=== PATIENT | female | born 1935 | race Caucasian/White ===

== ENCOUNTER 2023-07-29 23:38 | Emergency (ER) | payer MEDICARE, SELFPAY ==
[2023-07-29 23:39] VITALS: BP 182/79; BMI 21.2
[2023-07-30] VITALS: BP 190/82
--- NOTE | 2023-07-30 00:19 | ED.GENMED ---
History of Present Illness
General
Chief Complaint: Musculo-Skeletal Complaint
Source: patient
Exam Limitations: none
Time Seen by Provider: 07/29/23 23:41
Travel History
Have you had any contact with someone who has COVID-19?: No
Do you have any symptoms of coronavirus? Fever > 100 degrees, chills, cough, shortness of breath, sore throat, loss of taste or smell, muscle aches, or headache?: No
History of Present Illness
History of Present Illness:
This is a 88 year old female that comes in by ambulance with c/o left wrist pain. Patient state that she was coming out of the bathroom and she slipped. State that she fell and she has pain in the left wrist. States that she also has a headache and
felt nauseated at first. States that she has had a cough for a week. (patient is on Zithromax at this time and steroids). Denies any fever, chills, chest pain, abd pain, vomiting, diarrhea, dizziness, urinary burning.
Past History
Past History
ED Past Medical History: Asthma and COPD
ED Past Surgical History: Appendectomy, Gynecological (Oophorectomy) and Orthopedic (Left hip replacement)
Social History
Tobacco: Former smoker
Alcohol: Occasional
Personal:
Living: senior living ()
Review of Systems
Review of Systems
All Other Systems: ROS reviewed and negative except as documented in HPI and ROS
Constitutional: Reports no symptoms; Denies fever or chills
EENT: Reports no symptoms
Respiratory: Reports cough and trouble breathing (occasional, not at this time. )
Cardiac: Reports no symptoms; Denies chest pain
ABD/GI: Reports nausea; Denies abdominal pain, vomiting or diarrhea
: Reports no symptoms; Denies dysuria, frequency or urgency
Musculoskeletal: Reports joint pain (Left wrist pain)
Skin: Reports no symptoms
Neurological: Reports headache; Denies dizzy
Psychiatric: Reports no symptoms
Phy Exam
General Physical Exam
General Presentation: no apparent distress
General age: appears stated age
General Skin: warm and dry
General Habitus: elderly
General Mental: alert
General Hydration: appears well hydrated
ENT Exam
ENT Exam: TM's normal, pharynx normal and neck supple
Eye Exam
Eye Exam: EOMI
Cardiovascular Exam
Cardiovascular Exam: regular rate/rhythm, no edema and normal peripheral pulses
Pulmonary Exam
Pulmonary Exam: lungs clear, no respiratory distress, no rales, chest non tender, no crackles, no rhonchi, no wheezing and no cough
Gastrointestinal Exam
Gastrointestinal Exam: normal bowel sounds, non tender, soft, no organomegaly, no pulsatile mass and non distended
Musculoskeletal Exam
Musculoskeletal Exam: other (Negative for any cervical neck tenderness. Able to flex left wrist and move fingers. hematoma noted on the lateral aspect of the wrist. Tender to palpation)
Skin Exam
Skin Exam: normal color, warm/dry, no rash, no petechia and other (Hematoma left lateral wrist)
Psychiatric Exam
Psychiatric Exam: normal mood/affect
Course
Orders/Labs/Results
Orders:
Orders
07/30/23 00:18
Wrist, Left 3 Views CR [CR Wrist - Left Min 3 Views] Urgent
Comment:
Reason For Exam: Fall, wrist pain
07/30/23 00:19
CT Head W/o Iv Contrast Urgent
Comment:
Reason For Exam: Fall, headache
07/30/23 00:50
Splints/Slings/Crut- Treatment ONCE
Crutches: No
Sling to: Left Arm
Location: Left
Type of Splint: Volar
07/30/23 00:59
Acetaminophen [Tylenol] 650 mg PO NOW STA
Vital Signs
Initial and Last Documented VS:
Initial Vital Signs
Temp Pulse Resp BP Pulse Ox
97.7 F 65 16 182/79 99
07/29/23 23:39 07/29/23 23:39 07/29/23 23:39 07/29/23 23:39 07/29/23 23:39
Last Documented Vital Signs
Temp Pulse Resp BP Pulse Ox
97.7 F 67 16 188/71 92
07/29/23 23:39 07/30/23 01:00 07/29/23 23:39 07/30/23 01:00 07/30/23 01:00
MDM/Problems Addressed
Differential Diagnosis Includes:
Left wrist contusion, Left fracture wrist,
MDM/Problems Addressed:
This is a 88 year old female that comes in with c/o fall. State that she fell and she has pain in the left wrist. Denies any LOC or hitting her head but is not c/o a headache.
Will X-ray wrist and CT head.
Back into see patient. Explained that she has a fracture of both the radius and Ulna. Will place patient in a splint and sling. Patient to follow up with the online merchandising specialist for further evaluation.
Chronic conditions affecting care:
NA
Acute Exacerbation and/or Progression of Chronic Illness:
NA
*Radiology
Radiology exam reviewed: preliminary read by ED provider (Left wrist- Fracture of the distal radius and ulna) and radiology read reviewed (CT head night hawk- No acute intracranial abnormality. No acute territorial infarct, hemorrhage, mass effect,
or midline shift. Moderate microangiopathy and volume loss. Chronic small bifrontal subdural effusions. )
*Pulse Oximetry
Patient hypoxic: no
*EKG
Interpreted by ED Provider?: NA
Rate: EKG- N/A
*[employer] Interpretation
Rate: [facility] [employer] [facility]- N/A
*Critical Care Note
Total Time (30-74mins, 75-104mins- exclusive of procedures): Not Applicable
ED Attending Note
-
Portions of this chart may have been created with voice recognition software.� Occasional wrong word or��sound alike� substitutions may have occurred due to the inherent limitations of voice recognition software.
Discharge Plan
Departure
Patient Disposition: Senior Care/SNF
Date of Disposition: 07/30/23
Time of Disposition: 02:02
Patient with high blood pressure during this ER visit?: Yes
Condition: Good
Covid-19: Not Applicable
Discharge Problem:
Closed fracture of left distal radius and ulna
Instructions: Wrist Fracture (DC), How to Use a Shoulder Sling, Splint Care, BLOOD PRESSURE, RICE Therapy
Prescriptions:
No Action
amiodarone 200 mg Tablet
200 mg PO DAILY
docusate sodium 100 mg Capsule
100 mg PO BID
fluticasone propionate 50 mcg/actuation [place],Suspension
50 mcg INTRANASAL DAILY
Rx Instructions:
2 sprays in each nostril
latanoprost 0.005 % Drops
1 drp OPHTHALMIC (EYE) QPM
Rx Instructions:
each eye
fluticasone propion-salmeterol [Wixela Inhub] 250-50 mcg/dose Blister With Device
1 inh INHALATION BID
sennosides [senna] 8.6 mg Tablet
8.6 mg PO HS PRN (Reason: constipation )
acetaminophen 325 mg Tablet
650 mg PO Q6H PRN (Reason: mild pain/fever)
trazodone 50 mg Tablet
25 mg PO HS PRN (Reason: insomnia)
azithromycin 250 mg Tablet
250 mg PO DAILY
Rx Instructions:
for 4 days starting 07/28/2023
prednisone 20 mg Tablet
40 mg PO DAILY
Rx Instructions:
for 5 days starting 07/27/2023
sertraline 100 mg Tablet
100 mg PO DAILY
torsemide 10 mg Tablet
10 mg PO DAILY
melatonin 3 mg Tablet
6 mg PO HS
folic acid 400 mcg Tablet
0.4 mg PO DAILY
levothyroxine 88 mcg Tablet
88 mcg PO DAILY
montelukast 10 mg Tablet
10 mg PO HS
albuterol sulfate 90 mcg/actuation Hfa Aerosol Inhaler
2 puff INHALATION 6XD PRN (Reason: shortness of breath)
ondansetron 4 mg Tablet,Disintegrating
4 mg PO Q8H PRN (Reason: nausea or vomiting)
metoprolol tartrate 25 mg Tablet
12.5 mg PO BID
Rx Instructions:
hold for sbp<95 or heart rate<60
vitamin [id number] acid 0.5-1 mg Tablet
1 tab PO DAILY
Referrals:
Ishan Cm DO [Active] - Follow up in 2-3 days
Shanti Guzman CRNP [Family Provider] -
Activity Restrictions/Additional Instructions:
As discussed, patient CT if the head is negative for any acute process. Patient has a distal radius and ulna fracture. Please keep the splint on until she is seen by the Orthopedics specialist. Please follow up with the online merchandising specialist in the
next 2-3 days. Please wear the sling when she is up walking around. Remove the sling to sleep and elevated on a pillow. Ice to the wrist as this will help decrease any pain. Tylenol as needed for pain. IF YOU HAVE ANY OTHER CONCERNS PLEASE RETURN
TO THE EMERGENCY ROOM.
Interventions
Interventions:
*Risk Screen - Suicide Last Done: 07/29/23 23:39
*General Assessment Last Done: 07/29/23 23:39
*Neglect/Abuse Screening Last Done: 07/29/23 23:39
*ED COVID-19 Vaccine History Last Done: 07/29/23 23:39
ED-Musculoskeletal Assessment Last Done: 07/30/23 00:00
Discharge Date and Time
Print Language: VIETNAMESE
[2023-07-30 01:00] VITALS: BP 188/71
[2023-07-30] MEDS: TYLENOL 650 MG PO (01:16)
[2023-07-30 02:00] VITALS: BP 174/80
[2023-07-30 04:10] VITALS: BP 156/70
== END 2023-07-30 04:38 ==
LOC: EMR 23:38
PROVIDERS: EMERGENCY PHYSICIAN Student in an Organized Health Care Education/Training Program; FAMILY PHYSICIAN Nurse Practitioner Family
DX: S52.592A Other fractures of lower end of left radius, initial encounter for closed fracture (principal); S52.692A Other fracture of lower end of left ulna, initial encounter for closed fracture; W19.XXXA Unspecified fall, initial encounter; Z87.891 Personal history of nicotine dependence; R03.0 Elevated blood-pressure reading, without diagnosis of hypertension
CPT/HCPCS: 99284; 29125; 70450; 73110

== ENCOUNTER 2023-10-13 17:08 | Emergency (ER) | payer MEDICARE, SELFPAY ==
[2023-10-13 17:11] VITALS: BP 159/80; BMI 21.2
--- NOTE | 2023-10-13 17:18 | PHANOTE ---
Med Rec Note:
1st page of MAR not sent with pt, called [facility], no answer, message left for nursing station to call back. Home med list entered with what pages were sent. Other medications left unconfirmed until full MAR received.
--- NOTE | 2023-10-13 18:09 | ED.GENMED ---
History of Present Illness
General
Chief Complaint: Fall
Source: patient, records and family
Exam Limitations: none
Time Seen by Provider: 10/13/23 17:40
Nursing documentation reviewed up to this point in time: agreed with
Travel History
Have you had any contact with someone who has COVID-19?: No
Do you have any symptoms of coronavirus? Fever > 100 degrees, chills, cough, shortness of breath, sore throat, loss of taste or smell, muscle aches, or headache?: No
History of Present Illness
History of Present Illness:
Patient is a 8-year-old female from a local senior care who got up to use the phone and did not use her walker and slipped to the ground. Patient denies any complaints. Patient denies any hip pain. Patient denies hitting her head. Patient
denies any neck, back, chest or abdominal pain. Patient denies any extremity pain.
Past History
Past History
ED Past Medical History: Arrthythmia, Asthma, CHF, COPD, HTN and Hypothyroidism
ED Past Surgical History: Appendectomy, Gynecological (Oophorectomy) and Orthopedic (Left hip replacement)
Social History
Tobacco: Former smoker
Alcohol: Occasional
Personal:
Living: senior care ()
Review of Systems
Review of Systems
All Other Systems: Not applicable
Phy Exam
Physical Exam
Physical Exam:
Physical Exam
General: No apparent distress, alert and appropriate, elderly and frail, well hydrated
HENT: Normocephalic and nontender, supple with no tracheal deviation or contusion
Eyes: Clear sclera, conjuctiva without injection
Heart: Regular rhythm and rate. No S3, S4. No murmur. No NVD
Lungs: No respiratory distress, no stridor, lung sounds are coarse but clear and equal bilaterally, chest wall symmetrical and nontender
Abdomen: Soft, nontender, BS good
Neuro: Alert and oriented x 3, CN II - XII intact, no motor focality, no cerebellar dysfunction
Skin: no wounds
Psychiatric: well kept. interactive and cooperative
Extremities: No edema, cyanosis, tenderness. Hips are full range of motion
Musculoskeletal: No cervical, thoracic or lumbar spine tenderness. Significant increase kyphoscoliosis with degenerative changes throughout
Scores
Heart Failure Risk
Heart Failure Risk Score: Not Applicable
Heart Score for Chest Pain Patients
STEMI patient?: Not applicable
Withdrawal Assessment of Alcohol
Withdrawal Assessment Completed?: Not applicable
Course
Orders/Labs/Results
Orders:
Orders
10/13/23 17:10
CR Hip - LT w/wo Pel 2-3 Vw* Urgent
Comment:
Reason For Exam: fall
Include a pelvis x-ray?: Yes
Vital Signs
Initial and Last Documented VS:
Initial Vital Signs
Temp Pulse Resp BP Pulse Ox
97.6 F 61 16 159/80 98
10/13/23 17:11 10/13/23 17:11 10/13/23 17:11 10/13/23 17:11 10/13/23 17:11
Last Documented Vital Signs
Temp Pulse Resp BP Pulse Ox
97.6 F 61 16 159/80 98
10/13/23 17:11 10/13/23 17:11 10/13/23 17:11 10/13/23 17:11 10/13/23 17:11
*Radiology
Radiology exam reviewed: preliminary read by ED provider (No fracture)
*Pulse Oximetry
Patient hypoxic: no
*EKG
Interpreted by ED Provider?: NA
*Environmental Studies Faculty Member Interpretation
Rate: Environmental Studies Faculty Member- N/A
*Critical Care Note
Total Time (30-74mins, 75-104mins- exclusive of procedures): Not Applicable
ED Attending Note
-
Portions of this chart may have been created with voice recognition software.� Occasional wrong word or��sound alike� substitutions may have occurred due to the inherent limitations of voice recognition software.
Discharge Plan
Departure
Patient Disposition: [facility]/SNF
Date of Disposition: 10/13/23
Time of Disposition: 18:15
Patient with high blood pressure during this ER visit?: No
Condition: Good
Covid-19: Not Applicable
Discharge Problem:
Fall
Instructions: Preventing falls in adults
Prescriptions:
No Action
amiodarone 200 mg Tablet
200 mg PO DAILY
docusate sodium 100 mg Capsule
100 mg PO BID
fluticasone propionate 50 mcg/actuation [place],Suspension
50 mcg INTRANASAL DAILY
Rx Instructions:
2 sprays in each nostril
latanoprost 0.005 % Drops
1 drp OPHTHALMIC (EYE) QPM
Rx Instructions:
each eye
fluticasone propion-salmeterol [Wixela Inhub] 250-50 mcg/dose Blister With Device
1 inh INHALATION R BID
sennosides [senna] 8.6 mg Tablet
8.6 mg PO HS
acetaminophen 325 mg Tablet
650 mg PO Q6H PRN (Reason: mild pain/fever)
trazodone 50 mg Tablet
25 mg PO HS PRN (Reason: insomnia)
sertraline 100 mg Tablet
100 mg PO DAILY
torsemide 10 mg Tablet
10 mg PO DAILY
melatonin 3 mg Tablet
6 mg PO HS
folic acid 400 mcg Tablet
0.4 mg PO DAILY
levothyroxine 88 mcg Tablet
88 mcg PO DAILY
montelukast 10 mg Tablet
10 mg PO HS
albuterol sulfate 90 mcg/actuation Hfa Aerosol Inhaler
2 puff INHALATION R Q6 PRN (Reason: sob)
ondansetron 4 mg Tablet,Disintegrating
4 mg PO Q8H PRN (Reason: nausea/vomiting)
cyanocobalamin (vitamin B-12) 1,000 mcg Tablet
1,000 mcg PO DAILY
hydrocortisone 1 % Cream
1 applic TOPICAL BID PRN (Reason: eczema)
Patient Comments:
10/13/2023: apply to left cheek area
nystatin [Nystop] 100,000 unit/gram Powder
1 applic TOPICAL BID
Patient Comments:
10/13/2023: apply to b/l breasts
nystatin [Nystop] 100,000 unit/gram Powder
1 applic TOPICAL BID PRN (Reason: rash)
Patient Comments:
10/13/2023: apply to b/l breasts
Referrals:
ROSALINO DU MD [Family Provider] - As needed
Activity Restrictions/Additional Instructions:
Continue present medications and therapy
Interventions
Interventions:
*Risk Screen - Suicide Last Done: 10/13/23 17:11
*General Assessment Last Done: 10/13/23 17:11
*Neglect/Abuse Screening Last Done: 10/13/23 17:11
ED- Fall Risk Assessment Last Done: 10/13/23 17:11
*ED COVID-19 Vaccine History Last Done: 10/13/23 17:11
ED-Musculoskeletal Assessment Last Done: 10/13/23 17:11
ED- Neurological Assessment Last Done: 10/13/23 17:11
ED-Skin Assessment Last Done: 10/13/23 17:11
Discharge Date and Time
Print Language: CAMBOD[place]
[2023-10-13 20:13] VITALS: BP 155/72
== END 2023-10-13 20:14 ==
LOC: EMR 17:08
PROVIDERS: EMERGENCY PHYSICIAN Emergency Medicine; FAMILY PHYSICIAN Internal Medicine
DX: Z04.3 Encounter for examination and observation following other accident (principal); W19.XXXA Unspecified fall, initial encounter; I11.0 Hypertensive heart disease with heart failure; I50.9 Heart failure, unspecified; E03.9 Hypothyroidism, unspecified; I48.91 Unspecified atrial fibrillation; H40.9 Unspecified glaucoma; D64.9 Anemia, unspecified; J45.909 Unspecified asthma, uncomplicated; F32.A Depression, unspecified; Z96.642 Presence of left artificial hip joint; Z87.891 Personal history of nicotine dependence
CPT/HCPCS: 99283; 73502